=== PATIENT | male | born 1950 | race Caucasian/White ===

== ENCOUNTER 2022-09-14 08:13 | Outpatient (CLI) | payer MEDICARE, OTHER, SELFPAY ==
--- NOTE | 2022-09-16 21:48 | WPDSLEEPSTUD ---
Sleep Study Date of Study: 09/14/22 Ordering Provider: Casey Armstrong MD Interpreting Physician: Jeanna Morfin MD Sleep Study Type: ASV Height: 1.83 m Weight: 99.79 kg Body Mass Index: 29.8 Neck Circumference (inches): 18 [place]: 8 Reason for Sleep Study Elevated AHI mainly central apneas and Gagandeep Owen despite PAP compliance. * 09/03/2020, split night study, AHI 79, 54 minute spent below 90%, no Gagandeep-Owen respirations, CPAP 14 cm was the optimal pressure * 02/10/2022, CPAP titration, CPAP 5-15 cm, transition to BiPAP final pressure . 48.7% of the study was below 88%, AHI was 2.1 on BiPAP . Sleep History John Baron is a 72-year-old man with history of obstructive sleep apnea who presents for an ASV titration due to elevated AHI on CPAP and BiPAP. He occasionally awakens from sleep short of breath. He frequently awakens at night with heartburn, belching or cough.??He never snores (on PAP). He occasionally has trouble sleeping when he has a cold. He occasionally has breathing problems at night. He never sweats excessively at night. He occasionally falls asleep during the day. He rarely falls asleep involuntarily and never falls asleep while driving. He never experiences loss of muscle tone with strong emotion. He never feels paralyzed on waking or falling asleep. He never experiences vivid dreams upon waking or falling asleep. He does not feel afraid of going to sleep. He never has nightmares. He never recalls his dreams. He never has thoughts racing through his mind. He does not feel sad or depressed. He rarely feels anxiety or worry about things. He rarely notices parts of his body jerk. He never kicks during the night. He rarely feels crawling or aching feelings in his legs. He never feels leg pain at night. He never grinds his teeth during sleep and never has morning jaw pain. He rarely feels bothered by pain during the day and is never awakened by pain during the night. He rarely wakes up feeling stiff, sore, and achy in the morning with pain in his neck, spine, or joints. Normal bedtime is around 10:30 - 11pm on the weekdays and same on the weekends, usually falling asleep quickly within 5 or 10 minutes. He typically gets about 6 to 7 hours of sleep per night. His wake-up time is around 5:30am on the weekdays and same on the weekends. He typically wakes up around 4 to 5 times per night, usually just awake for a few minutes and turns over.??He takes naps in the afternoon or evening. he reports a 15 lb weight gain in the last year Habits:??Never tobacco smoker. Drinks about 2 cups of coffee per day. No alcohol or recreational substances. [facility] Past Medical History Medical History (Updated 09/16/22 @ 23:28 by Jeanna Morfin MD) Central sleep apnea Hyperlipidemia Hypertension Surgical History Surgical History (Updated 09/16/22 @ 22:34 by Jeanna Morfin MD) History of nasal surgery Social History Social History (Updated 09/16/22 @ 22:34 by Jeanna Morfin MD) Smoking status: Never smoker Medications Medications: amitriptyline HCL 10 mg HS fish oil 1000 mg daily aspirin 81 mg daily hydrochlorothiazide 12.5 mg daily amlodipine 10 mg daily carvedilol 3.125 mg daily potassium chloride atorvastatin 20 mg daily Sleep Procedure This test was performed using the [employer] multiple channel system including EOG, EEG, submental EMG, EKG, nasal and oral airflow using thermistors and nasal pressure sensors, chest and abdominal belts for body position data, and pulse oximetry.? Video monitoring was also performed. The study was scored using CMS guidelines.??The patient was started on treatment using a medium AirFit F20 full face mask and heated humidity with BiPAP pressures 12/8, titrated to 13/8, and 14/9, then switched to ASV due to having high AHI with central events. ASV pressures attempted were listed as EPAP/min PS/max PS with an initial ASV 09/19/14, 10/20/14, 10/21/14, 11/21/16. on the fi
[2022-09-16 23:30] VITALS: BMI 29.8
== END 2022-09-15 06:12 | disposition home or self-care (01) ==
LOC: ANHCSM 08:15
PROVIDERS: Visit Provider Otolaryngology
DX: G47.33 Obstructive sleep apnea (adult) (pediatric) (principal); G47.31 Primary central sleep apnea
CPT/HCPCS: 95811